=== PATIENT | female | born 1995 | race Caucasian/White ===

== ENCOUNTER 2020-07-05 12:07 | Emergency (ER) | payer SELFPAY ==
--- NOTE | 2020-07-05 13:04 | CT ---
CT CERVICAL SPINE: Date; 06/25/[address] of the cervical spine was done following trauma. No fracture, dislocation, or disc space narrowing was seen. The C1 to dens distance is normal and the soft tissues are normal in thickness. The surrounding soft tissues of the neck were unremarkable. Th e lung apices were clear. There is no sign of central canal or foraminal stenosis at any cervical lev el. IMPRESSION: No significant findings. Preliminary reported called to [facility] in the ER at 1246 hours on 07/05/2020. CODE CR. POS: HOME
--- NOTE | 2020-07-05 13:06 | RAD ---
CHEST 2 VIEWS: Date: 07/05/2020 The heart is normal in size. The mediastinum shows no widening or shift. The lungs are fully inflated or clear. There are no effusions or signs of pneumothorax. The ribs and spine appear intact, as do t he other visible bony structures. Minor curvature to the spine might be positional. IMPRESSION: No acute thoracic finding. POS: HOME
[2020-07-05] MEDS ORDERED: Ibuprofen 200 MG TAB ONE (13:09)
[2020-07-05] MEDS ORDERED: traMADol HCl 50 MG TAB ONE (13:09)
== END 2020-07-05 13:20 | disposition home or self-care (01) ==
LOC: BURERS 12:07
DX: S13.4XXA Sprain of ligaments of cervical spine, initial encounter (principal); S93.401A Sprain of unspecified ligament of right ankle, initial encounter; S20.213A Contusion of bilateral front wall of thorax, initial encounter; V89.2XXA Person injured in unspecified motor-vehicle accident, traffic, initial encounter
CPT/HCPCS: 71046; 72125